=== PATIENT | female | born 1995 | race Caucasian/White ===

== ENCOUNTER 2019-02-04 18:28 | Emergency (ER) | payer BC ==
--- NOTE | 2019-02-04 19:03 | ER Document Report ---
ED Medical Screen (RME) - General Chief Complaint: Vag Bleeding, +preg <12wks Stated Complaint: BLEEDING WITH Time Seen by Provider: 02/04/19 19:02 Mode of Arrival: Ambulatory Information source: Patient Notes: Patient presents G3, P1 6 weeks complaining of pelvic pain with vaginal bleeding. Patient states she went for routine ultrasound today at her [employer] office and afterwards she started to have spotting. Since her return home she has had increased bleeding and pelvic pain now. I have greeted and performed a rapid initial assessment of this patient. A comprehensive ED assessment and evaluation of the patient, analysis of test results and completion of the medical decision making process will be conducted by additional ED providers. TRAVEL OUTSIDE OF THE [place] IN LAST 30 DAYS: No Physical Exam - Vital signs Vitals: Temp Pulse Resp BP Pulse Ox 97.4 F 97 16 110/63 100 02/04/19 18:54 02/04/19 18:54 02/04/19 18:54 02/04/19 18:54 02/04/19 18:54 - Abdominal Tenderness: Tender - Lower pelvic Course - Vital Signs Vital signs: Temp Pulse Resp BP Pulse Ox 97.4 F 97 16 110/63 100 02/04/19 18:54 02/04/19 18:54 02/04/19 18:54 02/04/19 18:54 02/04/19 18:54
[2019-02-04 19:40] LABS: ABSOLUTE EOSINOPHILS # (AUTO) 0.1 10^3/uL (0.0-0.6); ABSOLUTE LYMPHOCYTES (AUTO) 1.4 10^3/uL (0.5-4.7); ABSOLUTE MONOCYTES (AUTO) 0.6 10^3/uL (0.1-1.4); BASOPHILS % (AUTO) 0.7 % (0-2); EOSINOPHILS % (AUTO) 1.1 % (0-6); HEMATOCRIT 36.8 % (36.0-47.0); HEMOGLOBIN 12.5 g/dL (12.0-15.5); LYMPHOCYTES % (AUTO) 23.3 % (13-45); MEAN CORPUSCULAR HEMOGLOBIN 27.8 pg (27.0-33.4); MEAN CORPUSCULAR VOLUME 82 fl (80-97); MONOCYTES % (AUTO) 9.4 % (3-13); PLATELET COUNT 294 10^3/uL (150-450); RED BLOOD COUNT 4.49 10^6/uL (3.72-5.28); RED CELL DISTRIBUTION WIDTH 14.6 % (11.5-14.0); SEGMENTED NEUTROPHILS % (AUTO) 65.5 % (42-78); TOTAL CELLS COUNTED % (AUTO) 100 %; WHITE BLOOD COUNT 6.1 10^3/uL (4.0-10.5)
[2019-02-04 19:42] LABS: APPEARANCE,URINE CLEAR; BILIRUBIN,URINE NEGATIVE (NEGATIVE); GLUCOSE, URINE NEGATIVE (NEGATIVE); KETONES,URINE NEGATIVE (NEGATIVE); LEUKOCYTE ESTERASE,URINE TRACE (NEGATIVE); NITRITE,URINE NEGATIVE (NEGATIVE); PROTEIN,URINE >=500 mg/dL (NEGATIVE); URINE SPECIFIC GRAVITY 1.014
[2019-02-04 19:43] LABS: COLOR,URINE RED
--- NOTE | 2019-02-04 20:24 | RADIOLOGY REPORT (SQ) ---
EXAM DESCRIPTION: US TRANSVAGINAL COMPLETED DATE/TME: 02/04/2019 19:02 CLINICAL HISTORY: 23 years Female vag bleeding, cramping COMPARISON: None. TECHNIQUE: Transvaginal duplex imaging performed to evaluate the pelvis. FINDINGS: Cervix appears closed and measures 2.4 cm. Uterus measures 7.9 x 4.3 x 4.6 cm. Small amount of fluid is present in the endometrial canal in the lower uterine segment. Right ovary measures 2.7 x 1.3 cm normal blood flow. Left ovary measures 2.3 x 2.7 cm with normal blood flow. 1.2 cm cyst likely corpus luteum. No free fluid is noted. No evidence of IUP. Endometrial stripe 1.2 cm. IMPRESSION: No evidence of IUP. Findings are consistent with of uncertain location. Recommend follow-up in one week
--- NOTE | 2019-02-04 22:25 | ER Document Report ---
ED GI/ - General Chief Complaint: Vag Bleeding, +preg <12wks Stated Complaint: BLEEDING WITH Time Seen by Provider: 02/04/19 19:02 Mode of Arrival: Ambulatory Notes: Patient is a 23-year-old female that comes to the emergency department for chief complaint of heavy vaginal bleeding, she states she bled through 11 pads since this afternoon. She states she had been seen by [facility], she states she had a ultrasound that showed an intrauterine at 6 weeks with no heartbeat. She was supposed to get rechecked for the heartbeat later. She states the ultrasound was earlier today, she went home and started bleeding. She states she has had some cramping but nothing severe, she denies dizziness or passing out. She did not notice tissue but states that there were a lot of "very big blood clots". She is G3, P1 with one previous first trimester spontaneous . TRAVEL OUTSIDE OF THE [place] IN LAST 30 DAYS: No - Related Data Allergies/Adverse Reactions: No Known Allergies Allergy (Verified 02/04/19 20:54) Past Medical History - General Information source: Patient - Social History Smoking Status: Never Smoker Frequency of alcohol use: None Drug Abuse: None Lives with: Family Family History: Reviewed & Not Pertinent Patient has suicidal ideation: No Patient has homicidal ideation: No - Medical History Medical History: Negative Renal/ Medical History: Denies: Hx Peritoneal Dialysis Surgical Hx: Negative - Immunizations Immunizations up to date: Yes Hx Diphtheria, Pertussis, Tetanus Vaccination: Yes Review of Systems - Review of Systems Constitutional: No symptoms reported EENT: No symptoms reported Cardiovascular: No symptoms reported Respiratory: No symptoms reported Gastrointestinal: No symptoms reported Genitourinary: No symptoms reported Female Genitourinary: See HPI Musculoskeletal: No symptoms reported Skin: No symptoms reported Hematologic/Lymphatic: No symptoms reported Neurological/Psychological: No symptoms reported Physical Exam - Vital signs Vitals: Temp Pulse Resp BP Pulse Ox 97.4 F 97 16 110/63 100 02/04/19 18:54 02/04/19 18:54 02/04/19 18:54 02/04/19 18:54 02/04/19 18:54 - Notes Notes: GENERAL: Alert, interacts well. No acute distress. HEAD: Normocephalic, atraumatic. EYES: Pupils equal, round, and reactive to light. Extraocular movements intact. ENT: Oral mucosa moist, tongue midline. Oropharynx unremarkable. Airway patent. LUNGS: Clear to auscultation bilaterally, no wheezes, rales, or rhonchi. No respiratory distress. HEART: Regular rate and rhythm. No murmur ABDOMEN: Soft, non-tender. Non-distended. GENITOURINARY: For large blood clots removed on pelvic exam, noted to be bleeding moderately but not heavily currently. There is no tissue stuck in the cervix, cervix is somewhat open. No noted tenderness. No other concerning finding. Libia NEWMAN present at bedside. EXTREMITIES: Moves all 4 extremities spontaneously. No edema, normal radial and dorsalis pedis pulses bilaterally. No cyanosis. BACK: no cervical, thoracic, lumbar midline tenderness. No saddle anesthesia, normal distal neurovascular exam. Moves all extremities in full range of motion. NEUROLOGICAL: Alert and oriented x3. Normal speech. Cranial nerves II through XII grossly intact. PSYCH: Normal affect, normal mood. SKIN: Warm, dry, normal turgor. No rashes or lesions noted. Course - Re-evaluation Re-evalutation: hCG is over 2000, no intrauterine visualized, however patient very specifically states that there was a visualized at 6 weeks with no heartbeat on previous ultrasound. I requested this and patient states she is sure. As result I have a low suspicion of ectopic . Patient's abdomen is actually very benign as well. She denies any current complaints except for current bleeding. RhoGam is not indicated. Physical exam shows that patient is bleeding moderately but not very heavily and there are no concerning findings otherwise on exam. Patient is in no distress, denies any current symptoms, is tolerating this miscarriage very well both physically and emotionally. She states that she did extremely well last time as well. She declines any pain medication at home, requests only brief work note, states she will follow-up with [employer], states she will return if she worsens. This was discussed in detail. Stable at time of discharge. - Vital Signs Vital signs: Temp Pulse Resp BP Pulse Ox 97.4 F 80 18 120/70 97 02/04/19 18:54 02/04/19 23:40 02/04/19 23:40 02/04/19 23:40 02/04/19 23:40 - Laboratory Result Diagrams: 02/04/19 19:15 Laboratory results interpreted by me: 02/04/19 02/04/19 02/04/19 19:15 19:15 19:15 RDW 14.6 H Beta HCG, Quant 2075.70 H Urine Protein >=500 H Urine Blood SMALL H Urine Urobilinogen 2.0 H Ur Leukocyte Esterase TRACE H Discharge - Discharge Clinical Impression: Miscarriage, Vaginal bleeding Condition: Stable Disposition: HOME, SELF-CARE Additional Instructions: There is no visualized in the uterus. Your exam is otherwise olesya ssuring including your blood counts. Follow-up with CERTIFIED TRAVEL COUNSELOR closely in the office for recheck and additional management. See additional details below. Return if you worsen in any way including heavy bleeding, dizziness, passing out, severe pain, fever, or any other concerning symptoms. Miscarriage You have had a miscarriage (medically called a "spontaneous "). The miscarriage occurred because the fetus did not develop normally. There is nothing you did to cause it, and nothing you could have done to prevent it. About one in four ends in miscarriage. You should rest in bed for two or three days. As there is some risk of infection of the uterus, you should not have intercourse for one week (or until okayed by your physician). You might not have a period for six to eight weeks. You should not become again for at least three months -- the uterus requires time to get back to normal. Call the doctor or return for re-examination if there is heavy or persistent vaginal bleeding, fever, foul discharge, continued cramping pains, or abdominal pain. Forms: Return to Work
[2019-02-05 00:27] VITALS: BP 120/70
== END 2019-02-04 23:40 | disposition home or self-care (01) ==
LOC: ER 18:28
DX: O03.9 Complete or unspecified spontaneous abortion without complication (principal); O46.91 Antepartum hemorrhage, unspecified, first trimester; Z3A.01 Less than 8 weeks gestation of pregnancy
CPT/HCPCS: 36415; 76817; 81001; 84702; 85025; 86900; 86901; 87086; 87088; 99284